=== PATIENT | male | born 1955 | race Two or more races ===

== ENCOUNTER 2017-12-05 13:11 | Emergency (ER) | payer BC ==
[~2017-12-05] VITALS: Ht 177.8 cm; Wt 86.6 kg
[2017-12-05 13:24] VITALS: Ht 177.8 cm; Wt 86.6 kg
[2017-12-05 16:29] VITALS: BP 122/77
== END 2017-12-05 16:30 | disposition home or self-care (01) ==
LOC: ED 13:11
DX: M23.92 Unspecified internal derangement of left knee (principal); E11.9 Type 2 diabetes mellitus without complications; E78.00 Pure hypercholesterolemia, unspecified; R03.0 Elevated blood-pressure reading, without diagnosis of hypertension
CPT/HCPCS: J1885